=== PATIENT | female | born 1990 | race Two or more races ===

== ENCOUNTER 2024-10-17 00:01 | Emergency (ER) | payer OTHER ==
[~2024-10-17] VITALS: Ht 165.1 cm; Wt 106.6 kg
[~2024-10-17 00:01] MED LIST: PRENATAL1 TAB
[2024-10-17] MEDS ORDERED: 0.9 % SODIUM CHLORIDE 1,000 ML IV STA (01:46)
[2024-10-17 02:08] LABS: BASO % 0.5 % (0.1-1.2); EOS # 0.38 (0.04-0.54); EOS % 2.6 % (0.7-7.0); LYMPH # 3.58 (1.18-3.74); LYMPH % 24.2 % (19.3-53.1); MEAN PLATELET VOLUME 9.10 fl (9.4-12.4); MONO # 0.84 (0.24-0.82); MONO % 5.7 % (4.7-12.5); NEUT # 9.84 (1.56-6.13); NEUT % 66.5 % (34.0-71.1); RED CELL DISTRIBUTION WIDTH 14.5 % (11.6-14.4)
[2024-10-17 02:53] LABS: INR 0.96
[2024-10-17 03:12] LABS: ALT/SGPT 27.0 U/L (12-78); AST/SGOT 26.0 U/L (15-37); BILIRUBIN TOTAL 0.15 mg/dL (0.3-1.2); BUN CREA RATIO 18.0 (7.0-25.0); CREATININE SERUM 0.61 mg/dL (0.55-1.02); GFR 111.61; GLOBULINA 3.6 G/DL (2.4-3.5); GLUCOSE FASTING 95.0 mg/dL (65-100); OSMOLALITY SERUM 280.0 MOSM/KG (275-295)
[2024-10-17 03:13] LABS: HCG QUANTITATIVE 20820.0 mUI/mL (1-3)
== END 2024-10-17 04:44 | disposition home or self-care (01) ==
LOC: ER 00:01
DX: O20.9 Hemorrhage in early pregnancy, unspecified (principal); Z3A.15 15 weeks gestation of pregnancy